=== PATIENT | female | born 1980 | race Two or more races ===

== ENCOUNTER 2017-01-26 14:21 | Emergency (ER) | payer MEDICAID ==
[~2017-01-26] VITALS: Ht 157.5 cm; Wt 82.0 kg
[2017-01-26] MEDS ORDERED: SODIUM CHLORIDE 0.9% 1,000 ML IV ONE (16:11)
[2017-01-26] MEDS ORDERED: KETOROLAC 30MG/ML VIAL IV ONE (16:30)
[2017-01-26 17:10] LABS: BASOPHILS % 0.6 % (0.0-2.0); EOSINOPHILS % 2.8 % (0.0-5.0); HEMATOCRIT. 32.8 % (36.0-48.0); HEMOGLOBIN. 10.4 g/dL (12.0-16.0); LYMPHOCYTES % 34.8 % (20.0-50.0); MEAN CORPUSCULAR HEMOGLOBIN 23.3 pg (28.0-32.0); MEAN CORPUSCULAR VOLUME 73.7 fL (81.0-99.0); MEAN PLATELET VOLUME 8.6 fl (7.4-10.4); MONOCYTES % 8.3 % (2.0-8.0); NEUTROPHILS % 53.5 % (40.0-76.0); PLATELET 375 x1000/uL (130-400); RED BLOOD CELL COUNT 4.46 mill/uL (4.2-5.4); RED CELL DISTRIBUTION WIDTH 16.1 % (11.6-14.6)
[2017-01-26 17:19] LABS: HCG SCREEN NEGATIVE
[2017-01-26 17:20] LABS: CARBON DIOXIDE 29 mEq/L (21-32); CHLORIDE 105 mEq/L (98-107)
[2017-01-26 17:23] LABS: B-HCG QUANTITATIVE < 1 mIU/mL (<3)
[2017-01-26] MEDS ORDERED: METOPROLOL TARTRATE 25MG TABLET PO ONE (17:30)
[2017-01-26 19:25] VITALS: BP 165/92
== END 2017-01-26 19:39 | disposition home or self-care (01) ==
LOC: ER 17:45
DX: N93.8 Other specified abnormal uterine and vaginal bleeding (principal); I10 Essential (primary) hypertension; Z90.49 Acquired absence of other specified parts of digestive tract
CPT/HCPCS: 36415; 76830; 76856; 80053; 84702; 84703; 85025; 86850; 86900; 96360; 99285; J7030

== ENCOUNTER 2017-09-16 15:58 | Emergency (ER) | payer MEDICAID ==
[~2017-09-16] VITALS: Ht 157.5 cm; Wt 100.0 kg
[2017-09-16 16:57] VITALS: BP 152/95
== END 2017-09-16 19:30 | disposition left against medical advice (07) ==
LOC: ER 18:37
DX: M25.571 Pain in right ankle and joints of right foot (principal); M25.471 Effusion, right ankle
CPT/HCPCS: 99281

== ENCOUNTER 2018-01-01 01:10 | Emergency (ER) | payer MEDICAID ==
[~2018-01-01] VITALS: Ht 157.5 cm; Wt 101.0 kg
[2018-01-01 01:46] VITALS: BP 149/86
== END 2018-01-01 02:50 | disposition left against medical advice (07) ==
LOC: ER 01:10
DX: S01.111A Laceration without foreign body of right eyelid and periocular area, initial encounter (principal); S09.8XXA Other specified injuries of head, initial encounter; Y04.0XXA Assault by unarmed brawl or fight, initial encounter; Y93.89 Activity, other specified; Y92.018 Other place in single-family (private) house as the place of occurrence of the external cause
CPT/HCPCS: 81025; 99283; Z7610